=== PATIENT | male | born 1960 | race Caucasian/White ===

== ENCOUNTER 2019-03-28 08:59 | Observation (INO) | payer BC ==
[2019-03-28] MEDS ORDERED: Sodium Chloride 0.9% 10 ML Syringe FLUSH PRN (09:10)
[2019-03-28] MEDS ORDERED: Diltiazem 25 MG/5 ML SDV IVPUSH ONE (09:23)
[2019-03-28] MEDS ORDERED: Apixaban 5 MG Tab PO SCH (09:30)
[2019-03-28] MEDS ORDERED: ADALIMUMAB 40 MG INJECT SCH (09:30)
[2019-03-28] MEDS ORDERED: Diltiazem IR 60 MG Tab PO SCH ×3 (10:00→16:00)
--- NOTE | 2019-03-28 11:55 | HP ---
ADMISSION DATE: 03/28/2019 HISTORY OF PRESENT ILLNESS: Mr. Hernandez is a 58-year-old man with a history of rheumatoid arthritis, osteoporosis, GERD, and history of gastritis. He has a history of 4 previous episodes of atrial fibrillation and the last one being 23 years ago. Mr. Hernandez awakened at 4:30 this morning and felt his heart beating irregularly. He is quite aware of his heartbeat and recognized this as recurrent atrial fibrillation. He came into the clinic this morning where he was seen by Dr. Payton and sent to [facility] for admission. Mr. Hernandez is not having any chest pain, shortness of breath. He feels the palpitations, but otherwise feels healthy. He has not had any recent acute infections. He had 2 beers 4 nights ago. No alcohol since. No stimulant use, decongestants, etc. PAST MEDICAL HISTORY: He has had rheumatoid arthritis for many years. He is followed at [facility] in [place] for this. He has had the episodes of atrial fibrillation as mentioned above. He has GERD, osteoporosis, hiatal hernia. He is status post T and A at age 13 and has had right hand surgery for infection back in 1987. MEDICATIONS: 1. Folic acid 1 mg daily. 2. Methotrexate 2.5 mg 8 tablets weekly for 20 mg a week. 3. Humira Pen 40 mg subcu every 2 weeks. 4. Alendronate 70 mg weekly. 5. Calcium carbonate 1200/1500 with vitamin D daily. 6. Vitamin D3 1000 units daily. ALLERGIES: None known. HABITS: Nonsmoker. Occasional alcohol. FAMILY AND SOCIAL HISTORY: The patient's father has had AR at age 51 with high cholesterol, brother had AR at age 53, mother has had dementia and rheumatoid arthritis. REVIEW OF SYSTEMS: GENERAL: No seizure, syncope, or recent significant weight change. SKIN: Negative for rash. HEENT: No recent headaches. No recent change in hearing or vision. No sore throat or URI. RESPIRATORY: No cough or dyspnea. ABDOMEN: No abdominal pain, nausea, diarrhea, swelling, or skin rash. PHYSICAL EXAMINATION: GENERAL: He is alert, comfortable, and a good historian. VITAL SIGNS: Blood pressure 126/86, pulse 120, respirations normal. He is afebrile. SKIN: Anicteric, warm, dry without rash. HEENT: Shows his mouth to be dry. LUNGS: Clear. HEART: Irregular rate, slightly elevated. ABDOMEN: Soft, nontender. EXTREMITIES: Show no edema. ASSESSMENT: 1. Acute onset atrial fibrillation, recurrent. 2. Strong family history of coronary artery disease. 3. Longstanding rheumatoid arthritis. 4. Osteoporosis. 5. History of gastritis and gastroesophageal reflux disease with hiatal hernia. PLAN: He is admitted for rate control and possible conversion. He is started on Eliquis 5 mg b.i.d. He will be given Cardizem 20 mg IV dose followed by oral Cardizem and anticipate a very brief hospital stay with return to home. /[id number] MONA/KAILASH
[2019-03-28] MEDS ORDERED: FLU Vacc QS2019-20(6MOS+)/PF 60 MCG/0.5 ML SYRINGE IM ONE (12:00)
[2019-03-28 14:32] VITALS: BP 113/84; PULSE 76
[2019-03-29] MEDS ORDERED: Folic Acid 1 MG Tab PO SCH (09:00)
[2019-03-31] MEDS ORDERED: Alendronate 70 MG Tab PO SCH (06:00)
[2019-03-31] MEDS ORDERED: Methotrexate 2.5 MG Tab PO SCH (09:00)
== END 2019-03-28 18:00 | disposition home or self-care (01) ==
LOC: INTOOBSV 08:59 → FB.MS 08:59
PROVIDERS: ADMIT Family Medicine; ATTEND Family Medicine
DX: I48.91 Unspecified atrial fibrillation (principal); M06.9 Rheumatoid arthritis, unspecified; M81.0 Age-related osteoporosis without current pathological fracture; K21.9 Gastro-esophageal reflux disease without esophagitis; K44.9 Diaphragmatic hernia without obstruction or gangrene; Z23 Encounter for immunization; Z79.899 Other long term (current) drug therapy; Z82.49 Family history of ischemic heart disease and other diseases of the circulatory system
CPT/HCPCS: 90686; 94760; 96374; A9270-GY; G0008; G0378; G0379; J3490

== ENCOUNTER 2023-10-23 18:08 | Emergency (ER) | payer BC ==
[2023-10-23] MEDS: Ondansetron 4 MG Tab.DIS PO PRN (18:47)
[2023-10-23] MEDS ORDERED: Diphtheria,Pertussis(Acell),Tetanus Vaccine 0.5 ML Syringe ONE (19:03)
[2023-10-23] MEDS: Diphtheria,Pertussis(Acell),Tetanus Vaccine 0.5 ML Syringe IM ONE (19:09)
[2023-10-23 19:35] VITALS: BP 127/86; PULSE 59
== END 2023-10-23 19:35 | disposition home or self-care (01) ==
LOC: FB.ED 18:08
DX: S61.215A Laceration without foreign body of left ring finger without damage to nail, initial encounter (principal); Z79.899 Other long term (current) drug therapy; Z23 Encounter for immunization; W26.8XXA Contact with other sharp object(s), not elsewhere classified, initial encounter
CPT/HCPCS: 12001; 73130-LT; 90471; 90715; 99283-25; Q0162